=== PATIENT | female | born 1945 | race Two or more races ===

== ENCOUNTER 2021-06-19 06:21 | Day surgery (SDC) | payer OTHER ==
[~2021-06-19 06:21] MED LIST: GABAPENTIN300 M2 PO; LEVOTHYROXINE25 MCG PO; LOSARTAN-HCTZ1 EAC1 PO; METFORMIN HCL500 M3 PO; OMEPRAZOLE40 MG PO; RESTORIL30 MG PO; ROSUVASTATIN CA10 MG PO; SPIRIVA RESPIMAT4 G1 IH
[2021-06-19] MEDS ORDERED: PERCOCET 5-3251 EACH PO (10:27)
== END 2021-06-19 14:00 | disposition home or self-care (01) ==
LOC: CIR.AMB 06:21
PROVIDERS: ATTEND Surgery
DX: D35.1 Benign neoplasm of parathyroid gland (principal)